=== PATIENT | male | born 1965 | race Caucasian/White ===

== ENCOUNTER 2016-04-29 06:09 | Inpatient (IN) ==
--- NOTE | 2016-04-28 20:47 | Discharge Summary ---
<Elizabeth Segovia - Last Filed: 04/28/16 20:42> Date of Encounter: 04/28/16 - Discharge Diagnosis (1) Knee osteoarthritis Priority: Primary Status: Acute Qualifiers: Osteoarthritis type: primary Laterality: bilateral Qualified Code(s): M17.0 - Bilateral primary osteoarthritis of knee (2) HTN (hypertension) Priority: Secondary Status: Chronic Qualifiers: Hypertension type: essential hypertension Qualified Code(s): I10 - Essential (primary) hypertension (3) Tobacco use Priority: Secondary Status: Chronic - Discharge Medications Home Medications: Enoxaparin [Lovenox] 30 mg SQ Q12HR #20 syr 04/28/16 [Rx] OxyCODONE Immed Rel [Roxicodone 5 MG] 5 - 10 mg PO Q6HR PRN #40 tablet 04/28/16 [Rx] Amlodipine Besylate 2.5 mg PO DAILY 04/29/16 [History] Atorvastatin [Lipitor] 10 mg PO HS 04/29/16 [History] Fenofibrate 40 mg PO DAILY 04/29/16 [History] Losartan [Cozaar] 25 mg PO DAILY 04/29/16 [History] Allergies/Adverse Reactions: Allergies No Known Allergies Allergy (Verified 04/29/16 07:09) Primary care physician: Teo Salcedo CNP - Patient Status Disposition: Transfer Inpatient Rehab Fac Condition: Good - Discharge Instructions Follow Up With: Javon Blount MD [Partnered Physician] - 05/28/16 7:50 am Elizabeth Segovia PAC [Physician Smoking Pipe Coater] - 05/09/16 9:45 am Teo Salcedo CNP [Primary Care Provider] - - Hospital Course Hospital course: Mr. Marquez is a 51 year old male - Time Spent with Patient Total time spent providing and/or coordinating discharge services: <Javon Blount - Last Filed: 05/01/16 07:58> Date of Encounter: 05/01/16 Time of Encounter: 07:58 - Discharge Diagnosis (1) Obesity (BMI 35.0-39.9 without comorbidity) Priority: Secondary Status: Chronic (2) Knee osteoarthritis Priority: Primary Status: Acute Qualifiers: Osteoarthritis type: primary Laterality: bilateral Qualified Code(s): M17.0 - Bilateral primary osteoarthritis of knee (3) HTN (hypertension) Priority: Secondary Status: Chronic Qualifiers: Hypertension type: essential hypertension Qualified Code(s): I10 - Essential (primary) hypertension (4) Tobacco use Priority: Secondary Status: Chronic (5) Acute blood loss anemia Priority: Primary Status: Acute Primary care physician: Teo Salcedo CNP - Patient Status Functional capacity at discharge: uses cane/walker Overall status at discharge: patient is progressing back to baseline - Hospital Course Hospital course: Mr. Marquez is a 51 year old male The patient had an uneventful postoperative course. They received antibiotics and physical therapy and were discharged in stable condition. There will follow -up in the office in 2 weeks. Patient with a hemoglobin 9.2 asymptomatic discharge to rehabilitation facility stable condition Lovenox DVT prophylaxis - Time Spent with Patient Total time spent providing and/or coordinating discharge services:
[2016-04-29] MEDS ORDERED: CeFAZolin Pre 2,000 MG/100 ML 2,000 MG/100 ML BAG IVPB ONE (06:25)
[2016-04-29] MEDS ORDERED: Ringers Solution, Lactated 500 ML IVC SCH (06:30)
--- NOTE | 2016-04-29 06:36 | History & Physical Report ---
Date of Encounter: 04/29/16 Time of Encounter: 06:36 24 Hour HP Update - Instructions Instructions: If the History and Physical is less than 30 days old and was completed prior to A.M. admission and or procedure and has NOT been updated on calendar day of procedure please complete this update prior to performing procedure. - Update Patient reports changes in Medical Condition: No Changes in assessment/condition: No Changes in Medication: No Preop tests/diagnostics Reviewed: Yes Surgery Remains Indicated: Yes Consent for Planned Operative Procedure(s) Verified: Yes - Pre-Operative Checklist Preoperative Checklist Indicated: No Prophylactic Antibiotic Ordered: Yes Is VTE Prophylaxis Indicated?: Yes
--- NOTE | 2016-04-29 07:01 | Anesthesia Evaluation PreOp ---
Date of Encounter: 04/29/16 Time of Encounter: 06:58 - Past History Planned Operation: bilat tka Cardiac History: HTN, Hyperlipidemia Pulmonary History: Snore AUDIO VISUAL AIDE History: Denies Any Significant HX Other Medical History: Renal (stones), Thyroid Anesthesia History: No Prior Anesthetic Complications, Past Anesthesia (hernia, knee) Alcohol Use: occasionally Drug use: none Medications and Allergies Enoxaparin [Lovenox] 30 mg SQ Q12HR #20 syr 04/28/16 [Rx] OxyCODONE Immed Rel [Roxicodone 5 MG] 5 - 10 mg PO Q6HR PRN #40 tablet 04/28/16 [Rx] Allergies No Known Allergies Allergy (Unverified 04/23/16 15:58) - Meds/Allergy Pre-op Review Medications Reviewed: Yes Allergies Reviewed: Yes Beta Blockers on Current Med List: No Anesthesia Results - Labs Laboratory Tests 04/23/16 04/23/16 04/23/16 16:30 16:30 16:30 Hgb 14.7 Hct 43.1 Plt Count 295 PT 11.2 INR 1.0 APTT 27.1 Sodium 140 Potassium 3.7 Creatinine 0.85 - Imaging EKG: report reviewed (nsr) Anesthesia Exam O2 Sat Height 1.73 m Height 1.73 m Height 1.73 m Weight 105.687 kg Weight 105.687 kg Weight 105.687 kg O2 Sat by Pulse Oximetry 96 O2 Sat by Pulse Oximetry 96 Vital Signs Temp Pulse Resp BP Pulse Ox 98.2 F 70 18 143/93 96 04/29/16 06:23 04/29/16 06:23 04/29/16 06:23 04/29/16 06:23 04/29/16 06:23 Height: 1.73 Weight: 105 NPO (# of Hours): >8 - HEENT Pupil (Motor): Pupils equal, EOMI Mallampati: III Teeth: Normal Oral Opening: Greater than 3 (good underbite) - AUDIO VISUAL AIDE LOC: Oriented AUDIO VISUAL AIDE Motor: Normal RUE, Normal LUE, Normal RLE, Normal LLE, Normal Face AUDIO VISUAL AIDE Sensory: Normal: RUE, LUE, RLE, LLE, Face - Cardiac Rhythm: Regular Murmur: None - Pulmonary Breath Sounds: bilateral Clear Respiratory Effort: Symmetrical Anesthesia Assess/Plan ASA Score: 3 Modified Melita Scale for Level of Consciousness: Anixous, agitated or restless Anesthetic Plan: Regional Monitoring Plan: Standard Monitors Recovery Plan: PACU
[2016-04-29] MEDS ORDERED: Lidocaine -MPF 4% 5 ML AMPUL ONE (07:20)
[2016-04-29] MEDS ORDERED: Ondansetron 4 MG/2 ML VIAL ONE (07:20)
[2016-04-29] MEDS ORDERED: *HR* Midazolam HCl 2 MG/2 ML VIAL ONE (07:20)
[2016-04-29] MEDS ORDERED: Dexamethasone 4 MG/ML VIAL ONE (07:20)
[2016-04-29] MEDS ORDERED: *HR* FentaNYL (PF) 100 MCG/2 ML VIAL ONE (07:20)
[2016-04-29] MEDS ORDERED: *HR* Succinylcholine 200 MG/10 ML VIAL IVP ONE (07:20)
[2016-04-29] MEDS ORDERED: *HR* Propofol 200 MG/20 ML VIAL IVP ONE (07:20)
[2016-04-29] MEDS ORDERED: Lidocaine -MPF 2% 2 ML VIAL ONE (07:20)
[2016-04-29] MEDS ORDERED: *HR* Promethazine 25 MG/ML VIAL IVP PRN (07:28)
[2016-04-29] MEDS ORDERED: *HR* HYDROmorphone (PF) 1 MG/ML SYRINGE IVP PRN (07:28)
[2016-04-29] MEDS ORDERED: Lidocaine 1% 20 ML MDV ONE (07:48)
[2016-04-29] MEDS ORDERED: EPHEDrine 50 MG/ML VIAL ONE (08:16)
[2016-04-29] MEDS ORDERED: *HR* Morphine Sulfate/PF 10 MG/10 ML AMPUL ONE (08:29)
[2016-04-29] MEDS ORDERED: Ondansetron 4 MG/2 ML VIAL IVP PRN ×2 (08:33→11:37)
--- NOTE | 2016-04-29 09:15 | Orthopedic Operative Note ---
Date of procedure: 04/29/16 Pre-op diagnosis: Bilateral knee arthritis Post-op diagnosis: same Procedure: Procedure: Bilateral Total knee replacement Estimated blood loss: 600 cc Hardware: Arthrex Femur: 5 Tibia: 5 PS insert: 12 Patella: 37 all implants for both knees. Exam Under anesthesia: Bilateral varus alignment loss of full extension 10 degrees. Procedural Notes: Bilateral grade 4 arthritic changes medial compartment grade 4 arthritic changes patellofemoral joint. Operative procedure: The patient was brought to the operating room and placed on the operating room table. After general anesthesia was administered the operative knees were examined. Findings were noted in the exam under anesthesia. Both operative extremity was prepped and draped in sterile surgical fashion. The patient received IV antibiotics prior to skin incision. Surgery began with the left knee followed by the right knee. The following is the dictation for both knees. Any variation for either knee will be called out at the appropriate step. A standard midline incision was made centered over the patella. The incision was made through the skin and subcutaneous tissue. A medial parapatellar tendon approach was performed. Care was taken to preserve tissue along the medial aspect of the patella. And to protect the patella tendon. The deep MCL was released off the medial tibia. The infra patella fat pad was excised. Knee was brought into flexion. Both knees were identified to have grade 4 arthritic changes medial compartment and patellofemoral joint. The entry hole was made for the intramedullary femoral guide. The guide was seated in 6 degrees of valgus. Anterior cut was made followed by the distal cut. The ACL the PCL the medial and the lateral menisci were excised. The tibia was subluxed forward. The entry hole was made for the intramedullary tibial guide. Guide was seated to resect 2 mm off the more abnormal side. The knee was brought into flexion the distal femur was sized with need for sized to a 5. The femoral guide was seated, the anterior cut was made followed by the posterior condylar cut, followed by the chamfer cuts. The finishing guide was seated the box cut was made and the lug holes were drilled. The tibia was sized both tibias was sized to a 5, the tibial tray was seated and prepared with the large drill followed by the fin cutter. Trial reduction revealed full extension no varus valgus instability with the appropriate both knees used 12 PS Svetlana. The patella was everted and cut was made at the level of the insertion of the quadriceps and patella tendon. The patella was sized for both knees to 37th the guide was seated and the lug holes are drilled. Trial reduction revealed excellent patella tracking. All trial components were removed all bony surfaces were irrigated. The tibia was cemented first followed by the femur. Both knees required 12 PS Svetlana was seated and the knee was brought into full extension. The patella was cemented and held in place with the patellar holding clamp. After the cement had hardened, the knee sat for 2 minutes with a Betadine saline solution. The knee was then irrigated out with 2 L of pulse irrigation. The extensor mechanism was closed with a running #2 FiberWire suture running # 2 PDS suture. The subcutaneous tissue was then irrigated and closed deep with # 1 PDS suture superficially with 0 PDS suture and skin was closed with skin niesha. The patient was then placed in a sterile dressing and a postoperative brace extubated and transferred to recovery room in stable condition. Anesthesia: GETA, epidural Surgeon: Javon Blount Forest Officer: Elizabeth Segovia Condition: stable Disposition: PACU
--- NOTE | 2016-04-29 10:33 | Anesthesia Procedures ---
Date of Encounter: 04/29/16 Time of Encounter: 07:50 Procedures: Anesthesia - Epidural/Spinal Patient ID/Chart reviewed: Yes Patient examined: Yes Consent Obtained: Yes Supplemental Oxygen: Nasal Cannula Supplemental Oxygen Rate (L/min): 2 Sedation: Versed (mg): 2 Sedation: Fentanyl (mcg): 50 Site Prep: Aseptic Technique, Sterile prep and drape, Povidone-Iodine 1% Patient position: upright Local Anesthetic: Lidocaine 1% Touhy Needle Gauge: 19 Touhy Needle Depth (cm): 6 Catheter Depth at Skin (cm): 13 Test Dose (1.5% Lido + Epi): Volume given (mls): 3 Test Dose Result: Negative Loading Dose: Other: bupivicaine 0.5% 5ml increments Loading Dose Administered: Thru Catheter Catheter Secured in Place: Tegaderm, Tape Interspace Used: L3-L4 Loss of Resistance (LION): Yes Blood: No CSF: No Paresthesia: No Procedure: see anesthesia record charting Vitals + FHT's: Vital Signs - Last 8 Hours Temp Pulse Resp BP Pulse Ox 04/29/16 10:27 59 12 83/56 94 L 04/29/16 10:17 60 14 96/60 94 L 04/29/16 10:07 66 20 100/65 93 L 04/29/16 09:57 68 16 112/82 96 04/29/16 09:47 97 F L 75 20 83/61 95 04/29/16 07:38 68 140/97 98 04/29/16 06:34 98.2 F 70 18 143/93 96 04/29/16 06:23 98.2 F 70 18 143/93 96 Intake and Output 04/28/16 04/29/16 04/29/16 23:59 07:59 15:59 Output Total 600 / 600 Balance -600 / -600 Output: Estimated Blood Loss 600 / 600 Other: Weight 105.687 kg Patient Weight 04/29/16 23:59 Weight 105.687 kg
[2016-04-29 10:44] LABS: Hemoglobin 11.9 g/dL (12.9-16.9)
--- NOTE | 2016-04-29 11:20 | Anesthesia Evaluation Post Op ---
Date of Encounter: 04/29/16 Time of Encounter: 11:19 - Vital Signs Vital Signs: Vital Signs/O2 Sat/Glucose, Most Current Temp Pulse Resp BP Pulse Ox 04/29/16 11:07 97 F L 58 16 88/59 96 04/29/16 10:52 55 14 83/57 92 L 04/29/16 10:47 96.8 F L 63 16 88/56 93 L 04/29/16 10:37 57 18 75/47 93 L 04/29/16 10:27 59 12 83/56 94 L 04/29/16 10:17 60 14 96/60 94 L 04/29/16 10:07 66 20 100/65 93 L 04/29/16 09:57 68 16 112/82 96 04/29/16 09:47 97 F L 75 20 83/61 95 04/29/16 07:38 68 140/97 98 - Lungs Lungs: Clear Ascult./Percussion - Airway Airway: Non-obstructed - Cardiovascular Regular Rate - Mental Status Mental Status: Alert & Oriented, Answers Appropriately - Pain Pain Scale: 0 - Nausea Vomiting Nausea Vomiting: Not Present - Hydration Hydration: NPO - Discharge PostOp Status: Transfer Patient to floor
[2016-04-29] MEDS ORDERED: *HR* OxyCODONE Immed Rel 5 MG TABLET PO PRN (11:37)
[2016-04-29] MEDS ORDERED: Naloxone 0.4 MG/ML INJ IVP PRN (11:37)
[2016-04-29] MEDS ORDERED: Temazepam 15 MG CAPSULE PO PRN (11:37)
[2016-04-29] MEDS ORDERED: Acetaminophen 325 MG TABLET PO PRN (11:37)
[2016-04-29] MEDS ORDERED: MOM Conc 10 ML UD.LIQ PO PRN (11:37)
[2016-04-29] MEDS ORDERED: Sennosides 8.6 MG TABLET PO PRN (11:37)
[2016-04-29] MEDS: Ringers Solution, Lactated 1,000 ML IVC SCH (12:00)
[2016-04-29] MEDS: ceFAZolin 2,000 MG in D5% in Water 100 ML IVPB SCH ×2 (16:07→22:47)
[2016-04-29] MEDS: *HR* Enoxaparin 30 MG/0.3 ML SYRINGE SQ SCH (17:56)
[2016-04-29] MEDS ORDERED: *HR* Enoxaparin 30 MG/0.3 ML SYRINGE SQ SCH (18:00)
[2016-04-30] MEDS: Ringers Solution, Lactated 1,000 ML IVC SCH (03:05)
[2016-04-30] MEDS: *HR* Enoxaparin 30 MG/0.3 ML SYRINGE SQ SCH ×2 (05:05→17:08)
--- NOTE | 2016-04-30 06:38 | Orthopedics Progress Note ---
Date of Encounter: 04/30/16 Time of Encounter: 06:38 - Assessment and Plan (1) Obesity (BMI 35.0-39.9 without comorbidity) Current Visit: Yes Status: Chronic (2) Knee osteoarthritis Current Visit: Yes Status: Acute Qualifiers: Osteoarthritis type: primary Laterality: bilateral Qualified Code(s): M17.0 - Bilateral primary osteoarthritis of knee (3) HTN (hypertension) Current Visit: Yes Status: Chronic Qualifiers: Hypertension type: essential hypertension Qualified Code(s): I10 - Essential (primary) hypertension (4) Tobacco use Current Visit: Yes Status: Chronic Subjective Interval history: Patient was seen this morning doing well without complaints. Afebrile vital signs stable. Operative extremity: Neurovascularly intact Dressing clean dry and intact Calves nontender Assessment and plan: Continue with postoperative care hematocrit 35 Objective Vital signs: Vital Signs Temp Pulse Resp BP Pulse Ox 04/30/16 04:00 98.1 F 98 18 118/71 95 04/30/16 00:00 98.3 F 99 18 114/73 94 L 04/29/16 23:21 95 04/29/16 20:00 97.2 F L 91 16 112/78 93 L 04/29/16 15:08 97.3 F L 95 15 110/77 94 L 04/29/16 15:06 98.1 F 85 14 109/74 92 L 04/29/16 13:36 97.6 F 70 16 111/65 96 04/29/16 12:55 97.5 F L 66 16 93/61 95 04/29/16 12:54 97.0 F L 85 16 92/58 94 L 04/29/16 12:24 97.5 F L 64 16 90/54 96 04/29/16 11:40 97.6 F 56 16 97/59 98 04/29/16 11:17 97.3 F L 55 17 98/58 95 04/29/16 11:07 97 F L 58 16 88/59 96 04/29/16 10:52 55 14 83/57 92 L 04/29/16 10:47 96.8 F L 63 16 88/56 93 L 04/29/16 10:37 57 18 75/47 93 L 04/29/16 10:27 59 12 83/56 94 L 04/29/16 10:17 60 14 96/60 94 L 04/29/16 10:07 66 20 100/65 93 L 04/29/16 09:57 68 16 112/82 96 04/29/16 09:47 97 F L 75 20 83/61 95 04/29/16 07:38 68 140/97 98 Intake and Output 04/29/16 04/29/16 04/30/16 15:59 23:59 07:59 Intake Total 0 / 0 100 / 100 Output Total 600 / 600 15 Balance -600 / -600 100 / 100 -15 / -15 Intake: IV Fluids 100 / 100 Ancef 2,000 MG In 100 / 100 Dextrose 5% 100 ML @ 200 mls/hr IVPB Q8HR [facility] Rx#: [id number] Oral 0 / 0 Output: Urine Estimated Blood Loss 600 / 600 Other: Meal Dinner Percent of Meal Consumed 0% - Labs CBC & BMP: 04/29/16 10:08 Labs: Abnormal lab results Hgb 11.9 g/dL (12.9-16.9) L D 04/29/16 10:08 Hct 35.0 % (37.5-50.1) L 04/29/16 10:08 - VTE Documentation of Mechanical Device: Venous foot pump, device Consult Discharge Plan - Plan Referrals: Teo Salcedo CNP [Primary Care Provider] -
[2016-04-30 07:12] LABS: Hematocrit 30.4 % (37.5-50.1)
[2016-04-30 07:17] LABS: Potassium 4.3 mEq/L (3.5-4.5)
[2016-04-30 07:47] LABS: Hemoglobin 10.1 g/dL (12.9-16.9)
[2016-04-30] MEDS: amLODIPine 5 MG TABLET PO SCH (08:40)
[2016-04-30] MEDS: *HR* OxyCODONE Immed Rel 5 MG TABLET PO PRN ×3 (11:59→20:54)
[2016-04-30] MEDS: FENOFIBRATE 40 MG PO SCH (12:01)
[2016-04-30] MEDS ORDERED: 0.9 % Sodium Chloride 1,000 ML IVC ONE (13:44)
[2016-04-30] MEDS: Nicotine 21 MG PATCH.TD24 TD SCH (17:12)
[2016-04-30] MEDS: *HR* HYDROmorphone (PF) 1 MG/ML SYRINGE IVP PRN (18:51)
[2016-05-01] MEDS: *HR* HYDROmorphone (PF) 1 MG/ML SYRINGE IVP PRN ×4 (00:29→15:45)
[2016-05-01] MEDS: *HR* OxyCODONE Immed Rel 5 MG TABLET PO PRN ×4 (04:17→17:59)
[2016-05-01] MEDS: *HR* Enoxaparin 30 MG/0.3 ML SYRINGE SQ SCH ×2 (04:17→17:58)
[2016-05-01] MEDS: Ringers Solution, Lactated 1,000 ML IVC SCH (04:18)
[2016-05-01 06:04] LABS: Hematocrit 27.2 % (37.5-50.1); Hemoglobin 9.2 g/dL (12.9-16.9)
[2016-05-01 06:18] LABS: BUN/Creatinine Ratio 15 (6-26); Carbon Dioxide 27 mEq/L (19-29); Chloride 103 mEq/L (98-109); Glucose 120 mg/dL (70-99); Osmolality,Calculated 287 (280-300); Potassium 3.8 mEq/L (3.5-4.5); Sodium 138 mEq/L (136-145); eGFR For African Americans > 60 (> 60); eGFR For Non-African Americans > 60 (> 60)
[2016-05-01 06:20] LABS: Blood Urea Nitrogen 12 mg/dL (8-26)
--- NOTE | 2016-05-01 07:59 | Orthopedics Progress Note ---
Date of Encounter: 05/01/16 Time of Encounter: 07:59 - Assessment and Plan (1) Obesity (BMI 35.0-39.9 without comorbidity) Current Visit: Yes Status: Chronic (2) Knee osteoarthritis Current Visit: Yes Status: Acute Qualifiers: Osteoarthritis type: primary Laterality: bilateral Qualified Code(s): M17.0 - Bilateral primary osteoarthritis of knee (3) HTN (hypertension) Current Visit: Yes Status: Chronic Qualifiers: Hypertension type: essential hypertension Qualified Code(s): I10 - Essential (primary) hypertension (4) Tobacco use Current Visit: Yes Status: Chronic (5) Acute blood loss anemia Current Visit: Yes Status: Acute Subjective Interval history: Patient was seen this morning doing well without complaints. Afebrile vital signs stable. Operative extremity: Neurovascularly intact Dressing clean dry and intact Calves nontender Assessment and plan: Continue with postoperative care Hemoglobin 9.2 discharged today Objective Vital signs: Vital Signs Temp Pulse Resp BP Pulse Ox 05/01/16 06:22 98.3 F 106 18 146/77 93 L 05/01/16 04:58 97.9 F 82 17 153/87 96 04/30/16 23:01 98.3 F 111 15 134/69 94 L 04/30/16 21:02 95 04/30/16 15:23 98.3 F 100 18 119/61 92 L 04/30/16 11:00 97.8 F 96 18 115/70 93 L 04/30/16 08:49 93 L 04/30/16 08:43 80 L Intake and Output 04/30/16 04/30/16 05/01/16 15:59 23:59 07:59 Intake Total 1080 / 1080 565 / 565 Output Total 975 / 975 800 / 800 Balance 1080 / 1080 -975 / -975 -235 / -235 Intake: IV Fluids 600 / 600 565 / 565 Lactated Ringers 1,000 ML 600 / 600 565 / 565 @ 75 mls/hr IVC .[id number] [facility] Rx#:[id number] Oral 480 / 480 Output: Urine 975 / 975 800 / 800 Other: Meal Lunch Percent of Meal Consumed 100% - Labs CBC & BMP: 05/01/16 05:46 05/01/16 05:46 Labs: Abnormal lab results Hgb 9.2 g/dL (12.9-16.9) L 05/01/16 05:46 Hct 27.2 % (37.5-50.1) L 05/01/16 05:46 Glucose 120 mg/dL (70-99) H 05/01/16 05:46 Calcium 8.0 mg/dL (8.6-10.8) L 05/01/16 05:46 - VTE Documentation of Mechanical Device: Venous foot pump, device Consult Discharge Plan - Plan Referrals: Javon Blount MD [Partnered Physician] - 05/28/16 7:50 am Elizabeth Segovia PAC [Physician Composite Bond Worker] - 05/09/16 9:45 am Teo Salcedo CNP [Primary Care Provider] -
[2016-05-01] MEDS: Nicotine 21 MG PATCH.TD24 TD SCH (08:56)
[2016-05-01] MEDS: amLODIPine 5 MG TABLET PO SCH (08:56)
[2016-05-01] MEDS: FENOFIBRATE 40 MG PO SCH (08:57)
[2016-05-02] MEDS: *HR* Enoxaparin 30 MG/0.3 ML SYRINGE SQ SCH ×2 (05:40→18:13)
[2016-05-02] MEDS: *HR* OxyCODONE Immed Rel 5 MG TABLET PO PRN ×3 (05:41→18:13)
--- NOTE | 2016-05-02 08:05 | Orthopedics Progress Note ---
Date of Encounter: 05/02/16 Time of Encounter: 08:05 - Assessment and Plan (1) Obesity (BMI 35.0-39.9 without comorbidity) Current Visit: Yes Status: Chronic (2) Knee osteoarthritis Current Visit: Yes Status: Acute Qualifiers: Osteoarthritis type: primary Laterality: bilateral Qualified Code(s): M17.0 - Bilateral primary osteoarthritis of knee (3) HTN (hypertension) Current Visit: Yes Status: Chronic Qualifiers: Hypertension type: essential hypertension Qualified Code(s): I10 - Essential (primary) hypertension (4) Tobacco use Current Visit: Yes Status: Chronic (5) Acute blood loss anemia Current Visit: Yes Status: Acute Subjective Interval history: Patient was seen this morning doing well without complaints. Afebrile vital signs stable. Operative extremity: Neurovascularly intact Dressing clean dry and intact Calves nontender Assessment and plan: Continue with postoperative care discharged today Objective Vital signs: Vital Signs Temp Pulse Resp BP Pulse Ox 05/02/16 07:07 97.9 F 105 16 122/60 95 05/02/16 00:44 94 L 05/01/16 22:29 98.3 F 97 16 124/74 94 L 05/01/16 15:49 97.8 F 54 16 134/70 05/01/16 13:10 125/76 05/01/16 11:24 97.5 F L 102 16 97/48 96 05/01/16 09:27 94 L Intake and Output 05/01/16 05/02/16 05/02/16 23:59 07:59 15:59 Output Total 300 / 300 Balance -300 / -300 Output: Urine 300 / 300 - Labs CBC & BMP: 05/01/16 05:46 05/01/16 05:46 Labs: Abnormal lab results Hgb 9.2 g/dL (12.9-16.9) L 05/01/16 05:46 Hct 27.2 % (37.5-50.1) L 05/01/16 05:46 Glucose 120 mg/dL (70-99) H 05/01/16 05:46 Calcium 8.0 mg/dL (8.6-10.8) L 05/01/16 05:46 - VTE Documentation of Mechanical Device: Venous foot pump, device Consult Discharge Plan - Plan Referrals: Javon Blount MD [Partnered Physician] - 05/28/16 7:50 am Elizabeth Segovia, PAC [Physician Salesperson Neckties] - 05/09/16 9:45 am Teo Salcedo CNP [Primary Care Provider] -
[2016-05-02] MEDS: amLODIPine 5 MG TABLET PO SCH (08:55)
[2016-05-02] MEDS: Nicotine 21 MG PATCH.TD24 TD SCH (08:56)
[2016-05-02] MEDS: FENOFIBRATE 40 MG PO SCH (08:57)
[2016-05-02 15:12] VITALS: BP 115/67
== END 2016-05-02 18:45 | DRG 462 ==
LOC: SAMDAY 06:09 → 3NENU 11:10
PROVIDERS: ADMIT Orthopaedic Surgery; ATTEND Orthopaedic Surgery